=== PATIENT | male | born 1935 | race Caucasian/White ===

== ENCOUNTER 2017-11-19 05:30 | Day surgery (SDC) | payer OTHER ==
[~2017-11-19] VITALS: Ht 190.5 cm; Wt 104.3 kg
--- NOTE | ~2017-11-19 | O ---
[facility] [place] [address] OPERATIVE REPORT Name: SIN VALENTIN Room #: 150-5 [facility]..#: [id number] Admission: 11/19/17 Attend Phys: Riccardo Elliott MD Discharge: Date of : 33 Report #: [id number] THIS REPORT FOR: //name// CC: La Elliott DATE OF SERVICE: 11/19/2017 PREOPERATIVE DIAGNOSIS: Basal cell carcinoma of right lower lid and cheek. POSTOPERATIVE DIAGNOSIS: Basal cell carcinoma of right lower lid and cheek. PROCEDURE: Excision of basal cell carcinoma of right lower lid and cheek with frozen sections and myocutaneous flap repair of defect. SURGEON: Riccardo Elliott M.D. MONUMENT INSTALLER: None. ANESTHESIA: MAC. COMPLICATIONS: None. INDICATIONS FOR SURGERY: This pleasant 82-year-old gentleman has a nodular ulcerative lesion in his right nasojugal fold. It has been biopsy proven to be basal cell carcinoma. He presents today for excision of the lesion with frozen sections and subsequent reconstruction of that defect. Informed consent was obtained to include but not limited to the potential risk for loss of vision, bleeding, infection, failure to improve the problem, and the potential need for further surgery or treatment. DESCRIPTION OF PROCEDURE: The patient was taken to the operating room where 2% Xylocaine with epinephrine mixed with equal parts 0.75% Marcaine with Wydase was administered transcutaneously to the right lower lid, the right medial canthus, the right lateral canthus and the right cheek. The patient was subsequently prepped and draped in the usual sterile fashion. A fine tip skin marking pen was then utilized to outline the lesion including 2-3 mm of normal appearing tissue around its margins. The incisions were then made with a 15C blade and then the deeper dissection accomplished with a George scissor. The specimen was oriented on a drawing for the waiting pathologist. She took the specimen as hemostasis was achieved in the field. Since the specimen was directly overlying the angular artery, the bleeding was relatively brisk. The pathologist snap froze that specimen and she found that the margins she felt were clear. [address] [address] OPERATIVE REPORT Name: SIN VALENTIN Room #: 150-5 [facility].#: [id number] Admission: 11/19/17 Attend Phys: Riccardo Elliott MD Discharge: Date of : 33 Report #: [id number] The wound was then inspected and a myocutaneous flap outlined. Relaxing incisions were made and dissection accomplished primarily using blunt techniques to allow the lateral most portion of the right lower lid and cheek to be rotated superomedially to draw the lid back up to the globe. Hemostasis was then re-achieved. The flap was then secured with multiple interrupted deep Vicryl sutures. A 6-0 plain gut sutures were then used to close the skin. The wounds were cleaned and dressed with erythromycin ophthalmic ointment. The patient was subsequently transported to the recovery area having tolerated the procedures well with no anesthetic or operative complications being noted. By: [id number] Riccardo Elliott MD /nt
[~2017-11-19 05:30] MED LIST: ALBUTEROL2.5 MG/31 INH; ASPIRIN EC325 MG PO; CARDIZEM CD180 MG PO; CRESTOR20 MG PO; IRON325 PO; LASIX 40 MG TAB40 M2 PO; LISINOPRIL10 MG PO; POTASSIUM99 MG PO; PREDNISONE 10 M10 MG PO; SYMBICORT160 MCG/4. INH; TESTOSTERO200 MG/1 M IM; VITAMIN B12-FO1 EAC1 PO; VITAMIN D1000 UNI2 PO
[2017-11-19 13:30] VITALS: BP 146/91
== END 2017-11-19 16:15 | disposition home or self-care (01) ==
LOC: OR 05:30 → TBA 05:34 → OR 10:44
DX: C44.112 Basal cell carcinoma of skin of right eyelid, including canthus (principal); I10 Essential (primary) hypertension; E78.5 Hyperlipidemia, unspecified; J43.9 Emphysema, unspecified; D64.9 Anemia, unspecified; Z96.651 Presence of right artificial knee joint; Z96.641 Presence of right artificial hip joint; Z87.891 Personal history of nicotine dependence; Z98.890 Other specified postprocedural states; Z95.5 Presence of coronary angioplasty implant and graft; Z85.828 Personal history of other malignant neoplasm of skin; Z88.8 Allergy status to other drugs, medicaments and biological substances; Z79.82 Long term (current) use of aspirin; Z79.899 Other long term (current) drug therapy
CPT/HCPCS: 50010; 50101; 50386; 50398; 51636; 56528; 56531; 62110; 62850; 70005